=== PATIENT | female | born 1980 | race Caucasian/White ===

== ENCOUNTER 2019-06-19 16:44 | Emergency (ER) | payer BC, SELFPAY ==
[2019-06-19 16:48] VITALS: BP 142/80; PULSE 90; RESP 16; TEMP 36.8; O2SAT 97
--- NOTE | 2019-06-19 16:54 | W.ED.GENAD ---
Discharge Plan Disposition Patient Disposition: HOME Condition: Fair Discharge Details Chief Complaint: Allergic Clinical Impression: Allergic reaction Primary Care Provider: Talita Smith ED Provider: Marva Hampton Home Meds and New Rx's Prescriptions: New prednisone 20 mg tablet 40 mg PO DAILY Qty: 8 RF: 0 Discharge Instructions Instructions: General Allergic Reaction (ED) Additional Instructions: Encourage hydration. Tylenol and/or Motrin as needed for discomfort. You may use topical hydrocortisone for itching. Please take prednisone as prescribed. Please follow up with primary care within the week if symptoms not improved. If you develop fever/chills, worsening of your rash, intraoral lesions, wheezing, difficulty breathing, vomiting or other new/worsening symptoms please seek care urgently once again. Referrals: Talita Smith [Primary Care Provider] - Discharge Data Discharge Date/Time-TO BE ENTERED AT DEPARTURE: 06/19/19 18:14 Medical Decision Making Patient is a 38-year-old otherwise healthy female, presenting today with chief complaint of rash. She reports the rash began insidiously yesterday. States it is itchy. Initially began in the posterior aspect of her neck and since spread to her hair, forehead, eyes. Is also endorsing rash on her chest, abdomen and pelvis. Notes that the medial aspect of the eyes are swollen. Denies any visual change, no discharge. No intraoral lesions. No stridor, wheezing or difficulty breathing. Denies any GI upset. No new known contacts to suggest unusual contact dermatitis. No recent travel. UPT negative On exam, the patient is resting comfortably. No respiratory distress. Is not tachycardic or hypoxic, afebrile. Lungs are clear, no intraoral lesions. Rash consistent with contact dermatitis or other source of allergic urticaria. Patient be given dose of prednisone here. She has been using Benadryl, Zyrtec without symptomatic management and feels that the rash is spreading and worsening. Patient has been on prednisone for similar reaction personally 5 years ago and tolerated this well. I encouraged hydration. Encourage close follow-up with primary care, and advised to may discuss allergy testing if indicated. She was given strict return precautions. Will use topical hydrocortisone cream to help with symptomatic management. All of her questions and concerns were addressed and she is in agreement this plan. HPI General Mode of arrival: ambulatory. Date/Time Provider Initiated Documentation: 06/19/19 16:51. Limitations to Documentation: no limitations. Information obtained by: patient and RN notes reviewed. History of Present Illness 38 year old F presents to the emergency department with the chief complaint of rash, described as moderate, with intensity rated at 6. Quality is described as aching, and is localized to the face, neck, chest, abdomen and pelvis. Patient reports no radiation. Patient started experiencing this day(s) (1) and it has been constant (worsening/spreading). No relieving factors improve symptom(s), No exacerbating factors reported . Patient notes rash; denies chest pain, cough, diaphoresis, fever/chills, headaches, loss of appetite, nausea/vomiting, shortness of breath and weakness. Patient did receive the following treatments prior to arrival, other (benadryl) Related Data Home Medications Medication Instructions Recorded Confirmed prednisone 40 mg PO DAILY #8 tab 06/19/19 Previous Rx's Medication Instructions Recorded prednisone 40 mg PO DAILY #8 tab 06/19/19 Allergies Allergy/AdvReac Type Severity Reaction Status Date / Time Penicillins Allergy Intermediate Hives Unverified 06/19/19 16:53 erythromycin base Allergy sensitivit Unverified 06/19/19 16:53 y General Stated Complaint: Allergic SASHA: 3 Review of Systems Constitutional Reports as per HPI, Denies chills, Denies fever(s), Denies headache(s) and Denies poor appetite Eyes Reports as per HPI, Denies eye discharge and Denies irritation ENT Reports as per HPI, Denies headache(s), Denies sore throat, Denies throat swelling and Denies tongue swelling Cardiovascular Reports as per HPI, Denies chest pain and Denies dyspnea Respiratory Reports as per HPI, Denies cough, Denies dyspnea, Denies stridor and Denies wheezing Gastrointestinal Reports as per HPI, Denies abdominal pain, Denies change in bowel habits, Denies nausea and Denies vomiting Integumentary/Breasts Reports as per HPI, Reports rash and Reports skin pain (itching) Neurologic Reports as per HPI and Denies headache(s) Allergic/Immunologic Denies throat swelling, Denies tongue swelling and Denies wheezing PFS Social History Smoking/Tobacco Use Status: Never Alcohol Intake: current Alcohol Intake frequency: a few times a month Drug use: Never Substance use type: does not use Do you feel safe at home: Yes Do you feel safe in your relationship?: Yes Exam Const General: cooperative, healthy appearing, comfortable, no acute distress, well developed and well groomed Nutritional Appearance: average body habitus and well nourished Orientation: alert and awake [facility] Head: normal to inspection, normocephalic and atraumatic Ears: hearing grossly normal bilaterally, external ears normal and TM's normal bilaterally General nose exam: external nose normal and nares normal Face and sinus: abnormal facial exam (erythematous rash to forehead), sinuses nontender and face symmetric Mouth: oral mucosae normal, lip normal, tongue normal, oropharynx normal and moist mucous membranes Teeth and gingiva: dentition normal and gingiva normal Throat: posterior oropharynx normal, tonsils normal and uvula midline Eyes General: appearance normal, both eyes and all related structures Neck Neck: not normal to visual inspection (urticarial rash to posterior neck into hair), full ROM, no lymphadenopathy and no meningeal signs Resp Effort & Inspection: normal respiratory effort, able to speak in complete sentences and no respiratory distress Auscultation: clear to auscultation bilaterally, no rales, no rhonchi and no wheezes Cardio Rate: regular rate Rhythm: regular rhythm Heart Sounds: S1 normal and S2 normal GI Inspection: abnormal to inspection (rash as described below) Skin General skin exam: erythema (erythematous blotchy, raised rash consistent with hives to face, neck, ab) Neuro General: alert and awake Cognition: normal cognition Speech: speech normal Gait: normal gait Extrem General: normal to inspection (no rash) Psych Appearance: grossly normal and well kempt Mental Status: mental status grossly normal Speech and Movement: speech and movement normal Course Vital Signs Temperature 36.8 C 06/19/19 16:48 Pulse 90 06/19/19 16:48 Respiratory Rate 16 06/19/19 16:48 Blood Pressure 142/80 H 06/19/19 16:48 Pulse Oximetry 97 06/19/19 16:48 Temperature 36.8 C 06/19/19 16:48 Temperature Source Skin 06/19/19 16:48 Pulse 90 06/19/19 16:48 Respiratory Rate 16 06/19/19 16:48 Respiratory Effort Non-Labored 06/19/19 16:51 Blood Pressure 142/80 H 06/19/19 16:48 Pulse Oximetry 97 06/19/19 16:48 Oxygen Delivery Method Room Air 06/19/19 16:48 Oxygen Flow Rate 0 06/19/19 16:48 Pain Level 6 06/19/19 16:48
[2019-06-19] MEDS: predniSONE 20 MG TAB 40 MG PO (17:11)
== END 2019-06-19 18:14 | disposition home or self-care (01) ==
LOC: ER 17:43
PROVIDERS: Emergency Provider Physician Assistant; PCP Nurse Practitioner Family
DX: L50.0 Allergic urticaria (principal)
CPT/HCPCS: 81025; 99283; J7512

== ENCOUNTER 2023-02-02 18:46 | Emergency (ER) | payer SELFPAY ==
[2023-02-02] VITALS (10 sets, daily range): BP systolic 108–143; BP diastolic 62–96; PULSE 68–87; RESP 15–24; TEMP 36.9; O2SAT 95–98
--- NOTE | 2023-02-02 18:45 | RT.EKG_ITS ---
APPROVED REPORT Exam: Resting ECG Reason for Exam: Chest pain Patient Location: E HR:72 bpm ECG Measurements Heart Rate 72 AXIS GA 137 P 68 QRSd 80 QRS 78 QT 398 T 76 QTc 435 Conclusion Sinus rhythm...normal P axis, V-rate 60- 99 sinus rhythm, normal axis, normal intervals, consider lateral st segment depressions
--- NOTE | 2023-02-02 19:00 | DI.RAD_ITS ---
Exam(s) XR CHEST 2V PA LATERAL EXAM: XR CHEST 2V PA LATERAL CLINICAL HISTORY: Chest Pain TECHNIQUE: 2D digital imaging was performed of the chest. Two images were obtained. PA and lateral views were obtained. COMPARISON: No exams were available for comparison FINDINGS: MEDIASTINUM: Normal. HEART: Normal. PULMONARY VASCULATURE: Normal. LUNGS: Clear. PLEURAL SPACE: No pleural effusion or pneumothorax. BONE:Within normal limits for the patient's age. OTHER FINDINGS:Normal. IMPRESSION: No acute pulmonary findings. DATA REPOSITORY: RADIATION DOSE DELIVERED:
--- NOTE | 2023-02-02 19:03 | ED.GENADUL_ITS ---
Discharge Plan Disposition Patient Disposition: Home Condition: Stable Discharge Details Clinical Impression: Feeling of chest tightness Primary Care Provider: Talita Smith ED Provider: Shirin Alves Home Meds and New Rx's Prescriptions: No Action omeprazole 20 mg Tablet,Delayed Release (Dr/Ec) 20 mg PO DAILY prednisone 20 mg tablet 40 mg PO DAILY Qty: 8 0RF Discharge Instructions Instructions: Chest Pain (ED) Additional Instructions: Cardiac work-up today is within normal limits. No evidence of heart problems, no evidence of pneumonia. Follow up with primary care provider in 3-5 days. Return to ED sooner if any worsening or concerns. Increase oral fluids. Follow-up with research chemical engineer if you continue to have this throat discomfort. Referrals: Joseph Harrell MD [ [facility] STAFF PHYSICIAN] - 1 week Talita Smith [Primary Care Provider] - 5 days Medical Decision Making 42-year-old female presents to the ER with a chief complaint of throat discomfort, reports that she feels like she cannot clear her throat, chest tightness. She reports unable to clear her for throat for the last 3 weeks and chest tightness began today. She was seen in [facility] and was sent here for further evaluation. She denies any nausea vomiting diarrhea denies any fever chills or productive cough. She is a non-smoker. EKG was reviewed by Dr. Minaya ER attending, please see your official report, no old EKG available for review. Work-up ordered including CBC CMP serial troponins, chest x-ray. Differential diagnosis includes but limited to coronary artery disease, pneumonia, viral illness or URI. PE although this is unlikely due to no tachycardia no shortness of breath. Work-up is largely unremarkable, no leukocytosis, CMP within normal limits, serial troponins negative x2 chest x-ray also within normal limits, patient was given lorazepam, GI cocktail and albuterol inhaler which seemed to improve her symptoms. I did instruct her to follow-up with her PCP and ear nose and throat if continued trouble clearing her throat. This text was generated using Mimoonaation system, please disregard any oddities of phrase or misspellings. Imaging Data Radiologic Study: Imaging: X-Ray Radiologist's impression: Imaging protocol: Radiologic exam of the chest. Views: 2 views. COMPARISON: No relevant prior studies available. FINDINGS: Lungs: Unremarkable. No consolidation. Pleural spaces: Unremarkable. No pleural effusion. No pneumothorax. Heart/Mediastinum: Unremarkable. No cardiomegaly. Bones/joints: Unremarkable. IMPRESSION: No acute findings. Thank you for allowing us to participate in the care of your patient. Dictated and Authenticated by: Enmanuel Lezama MD Lab Data Lab results reviewed: Yes I reviewed the patient's lab results. Labs: Laboratory Tests Range/Units 02/02/23 02/02/23 02/02/23 18:47 18:47 19:35 WBC Cancelled 10.64 RBC Cancelled 4.51 Hgb Cancelled 14.1 Hct Cancelled 39.9 MCV Cancelled 89 MCH Cancelled 31.3 MCHC Cancelled 35.3 RDW Cancelled 11.5 L Plt Count Cancelled 288 MPV Cancelled 9.5 Immature Gran % Cancelled 0.3 Neutrophils % Cancelled 59.0 Band Neutrophils % Cancelled Lymphocytes % Cancelled 32.3 Atypical Lymphs % Cancelled Monocytes % Cancelled 6.8 Eosinophils % Cancelled 1.4 Basophils % Cancelled 0.2 Metamyelocytes % Cancelled Myelocytes % Cancelled Promyelocytes % Cancelled Other Cells % Cancelled Nucleated RBC % Cancelled 0.0 Absolute Neutrophils Cancelled 6.28 Absolute Lymphocytes Cancelled 3.44 H Absolute Monocytes Cancelled 0.72 Absolute Eosinophils Cancelled 0.15 Absolute Basophils Cancelled 0.02 RBC Morphology Cancelled Polychromasia Cancelled Hypochromasia Cancelled Poikilocytosis Cancelled Basophilic Stippling Cancelled Anisocytosis Cancelled Microcytosis Cancelled Macrocytosis Cancelled Spherocytes Cancelled Tear Drop Cells Cancelled Ovalocytes Cancelled Stomatocytes Cancelled [place] Bodies Cancelled Kaci Cells/Echinocytes Cancelled Acanthocytes (Spur) Cancelled Schistocytes Cancelled Sodium Cancelled Potassium Cancelled Chloride Cancelled Carbon Dioxide Cancelled Anion Gap Cancelled BUN Cancelled Creatinine Cancelled Est GFR (CKD-EPI 2020) Cancelled Glucose Cancelled Calcium Cancelled Magnesium Cancelled Total Bilirubin Cancelled AST Cancelled ALT Cancelled Alkaline Phosphatase Cancelled Troponin I Cancelled Total Protein Cancelled Albumin Cancelled Range/Units 02/02/23 02/02/23 19:35 21:50 WBC RBC Hgb Hct MCV MCH MCHC RDW Plt Count MPV Immature Gran % Neutrophils % Band Neutrophils % Lymphocytes % Atypical Lymphs % Monocytes % Eosinophils % Basophils % Metamyelocytes % Myelocytes % Promyelocytes % Other Cells % Nucleated RBC % Absolute Neutrophils Absolute Lymphocytes Absolute Monocytes Absolute Eosinophils Absolute Basophils RBC Morphology Polychromasia Hypochromasia Poikilocytosis Basophilic Stippling Anisocytosis Microcytosis Macrocytosis Spherocytes Tear Drop Cells Ovalocytes Stomatocytes [place] Bodies [place] Cells/Echinocytes Acanthocytes (Spur) Schistocytes Sodium 137 Potassium 3.5 Chloride 104 Carbon Dioxide 25.8 Anion Gap 7.2 BUN 9 Creatinine 0.6 Est GFR (CKD-EPI 2020) 114.86 Glucose 99 Calcium 8.9 Magnesium 1.9 Total Bilirubin 0.3 AST 17 ALT 36 Alkaline Phosphatase 72 Troponin I < 50 < 50 Total Protein 7.4 Albumin 4.0 HPI General Mode of arrival: ambulatory . Date/Time Provider Initiated Documentation: 02/02/23 18:47 . Limitations to Documentation: no limitations . Information obtained by: patient, RN notes reviewed and old records reviewed . HPI Narrative: 42-year-old female presents to the ER with a chief complaint of throat discomfort, reports that she feels like she cannot clear her throat, chest tightness. She reports unable to clear her for throat for the last 3 weeks and chest tightness began today. She was seen in [facility] care and was sent here for further evaluation. She denies any nausea vomiting diarrhea denies any fever chills or productive cough. She is a non-smoker. She did travel to [place] approximately 3 weeks ago. Related Data Home Medications Medication Instructions Recorded Confirmed prednisone 20 mg tablet 40 mg PO DAILY #8 tabs 06/19/19 omeprazole 20 mg tablet,delayed 20 mg PO DAILY 02/02/23 02/02/23 release Previous Rx's Medication Instructions Recorded prednisone 20 mg tablet 40 mg PO DAILY #8 tabs 06/19/19 Allergies Allergy/AdvReac Type Severity Reaction Status Date / Time Penicillins Allergy Intermediate Hives Unverified 02/02/23 18:59 erythromycin base Allergy sensitivit Unverified 02/02/23 18:59 y General Stated Complaint: Chest Pain SASHA: 3 Review of Systems All systems reviewed & are unremarkable except as noted in HPI and below Cardiovascular Cardiovascular: Reports chest pain, Denies leg edema and Reports dyspnea Respiratory Respiratory: Reports cough and Reports dyspnea Gastrointestinal Gastrointestinal: Denies abdominal pain, Denies diarrhea, Denies nausea and Denies vomiting PFSH All Active Problems (Updated 02/02/23 @ 21:51 by Shirin Alves NP) Feeling of chest tightness (Acute) Social History Smoking/Tobacco Use Status: Never Smoking risk assessment performed?: Yes Alcohol Intake: current Alcohol Intake frequency: a few times a month Drug use: Never Substance use type: does not use Do you feel safe at home: Yes Do you feel safe in your relationship?: Yes Exam Narrative Exam Narrative: Constitutional: Alert and oriented x3. Appears stated age. Normal body habitus. Head: Normocephalic, no trauma. Eyes: Pupils PERRL, Red reflex noted, EOM's intact. Eyelids symmetrical without lesions, discharge, or swelling. ENT: Bilateral TM's WNL, External ear normal to inspection, no mastoid TTP, swelling, or erythema, Nasal turbinates WNL, no nasal discharge. Normal dentition, Posterior pharynx WNL, no exudate. Chest: RRR, Normal S1, S2, distal pulses intact. Resp: Lungs clear to auscultation bilaterally, no wheezes, rales, or rhonchi. Abdomen: Soft, non-distended, Normoactive bowel sounds all 4 quads. Musculoskeletal: Normal gait, 5/5 strength to all four extremities. Skin: No suspicious rashes or lesions. Capillary refill less than 2 sec. Neurologic: Cranial nerves II-XII intact. Alert and oriented x 3. Motor: No deficits noted. Sensory: Intact bilaterally all 4 extremities. Reflexes: DTR's intact bilaterally.. Hematologic/Lymphatic: No ecchymosis, no lymphadenopathy. Course Vital Signs Vital signs: Vital Signs Pulse 78 02/02/23 18:52 Respiratory Rate 18 02/02/23 18:52 Blood Pressure 143/83 H 02/02/23 18:52 Pulse Oximetry 98 02/02/23 18:52 Pulse 78 02/02/23 18:52 Respiratory Rate 18 02/02/23 18:55 Respiratory Effort Normal 02/02/23 18:55 Respiratory Depth Normal 02/02/23 18:55 Respiratory Pattern Normal 02/02/23 18:55 Blood Pressure 143/83 H 02/02/23 18:52 Pulse Oximetry 98 02/02/23 18:52 Oxygen Delivery Method Room Air 02/02/23 18:52 Oxygen Flow Rate 0 02/02/23 18:52
--- OUTSIDE RECORDS SUMMARY | 2023-02-02 19:17 | XMS_ITS ---
Author Name Nina Patel Address [address], [place] [id number] Organization [facility] Address [address], [place] [id number] Care Team Providers Care Environmental Safety Specialist Name Role Phone Nina Patel Unavailable [phone] PROBLEMS Type Condition ICD9-CM Code LUR58-TZ Code Onset Dates Condition Status SNOMED Code Problem Cystocele, midline N81.11 Active 240357424 Problem Sleep related leg cramps G47.62 Active [id number] ALLERGIES Substance Reaction Event Type Date Status Erythromycin nausea/vomiting Drug Allergy May, Act anthony Penicillin V Potassium rash Drug Allergy May, Active ENCOUNTERS Encounter Location Date Diagnosis [address] [id number] Jun, [address] [id number] May, Breast cancer screening by mammogram Z12.31 ; Encntr for accounting officer exam (general) (routine) w/o abn findings Z01.419 and IUD surveillance Z30.[address] [id number] Jun, [address] [id number] May, Encntr for accounting officer exam (general) (routine) w/o abn findings Z01.419 ; Weight gain R63.5 and Screening mammogram, encounter for Z12.31 [facility] [address], [place] [id number] 27 Dec, 2020 Encounter for screening laboratory testing for COVID-19 virus Z20.[address] [id number] 10 May, 2020 Encntr for accounting officer exam (general) (routine) w/o abn findings Z01.419 and IUD surveillance Z30.[address] [id number] 30 Dec, [address] [id number] 16 Jun, 2019 IUD surveillance Z30.[address] [id number] May, Encounter for insertion of intrauterine contraceptive device Z30.430 ; General counseling and advice for contraceptive management Z30.09 ; Encounter for test with result negative Z32.02 and Urinary frequency R35.[address] [id number] Apr, [address] [id number] February, [address] [id number] 13 Dec, 2018 Encounter for gynecological examination (general) (routine) without abnormal findings Z01.419 ; Encounter for other screening for malignant neoplasm of breast Z12.39 ; Encounter for screening for malignant neoplasm of cervix Z12.4 ; Headache in back of head R51 ; Encounter for issue of repeat prescription Z76.0 ; Encounter for surveillance of contraceptive pills Z30.41 ; Pelvic floor relaxation N81.89 ; Encounter for general adult medical examination without abnormal findings Z00.00 ; Encounter for screening for other suspected endocrine disorder Z13.29 and Sleep related leg cramps G47.[address] [id number] Nov, [address] [id number] Oct, Encounter for gynecological examination without abnormal finding Z01.419 ; Encounter for other screening for malignant neoplasm of breast Z12.39 ; Encounter for issue of repeat prescription Z76.0 ; Other specified noninflammatory disorders of vagina N89.8 and Cystocele, midline N81.[address] [id number] 14 Sep, [address] [id number] Jul, [address] [id number] Jul, [address] [id number] Jun, Encounter for gynecological examination (general) (routine) without abnormal findings Z01.419 ; Encounter for other screening for malignant neoplasm of breast Z12.39 ; Encounter for issue of repeat prescription Z76.0 and Cystocele, midline N81.[address] [id number] May, Guillermo Winter MD [address] [place] [id number] Jun, Encounter for gynecological examination V72.31 ; Screening breast examination V76.10 and PRESCRIP-ORAL CONTRACEPT V25.01 Guillermo Winter MD [address] [place] [id number] Mar, Oral contraceptive prescribed V25.01 Guillermo Winter MD [address] [place] [id number] Jun, Guillermo Winter MD [address] [place] [id number] May, Encounter for routine gynecological examination V72.31 ; Karen vaginitis 112.1 ; Frequency of urination 788.41 ; Special Screening for cervical cancer Pap Smear V76.2 and PRESCRIP-ORAL CONTRACEPT V25.01 Guillermo Winter MD [address] [place] [id number] Apr, IMMUNIZATIONS No Known Immunizations SOCIAL HISTORY Qualifiers Date Never Smoker REASON FOR REFERRAL FUNCTIONAL STATUS PLAN OF CARE Activity Details VITAL SIGNS Height 62 in 2022-06-16 Height 62 in 2021-06-04 Height 62 in 2020-05-27 Height 62 in 2019-07-03 Height 62 in 2019-06-06 Height 62 in 2018-12-28 Height 62 in 2017-11-01 Height 62 in 2016-07-07 Height 62 in 2015-06-28 Height 62 in 2014-05-30 Weight 201.8 lbs 2022-06-16 Weight 194.0 lbs 2021-06-04 Weight 185.4 lbs 2020-05-27 Weight 161.0 lbs 2019-07-03 Weight 160.6 lbs 2019-06-06 Weight 167 lbs 2018-12-28 Weight 165.8 lbs 2017-11-01 Weight 167 lb 2 oz lbs 2016-07-07 Weight 169 lbs 2015-06-28 Weight 153 lbs 2014-05-30 Heart Rate 62 /min 2015-06-28 BMI 36.91 kg/m2 2022-06-16 BMI 35.48 kg/m2 2021-06-04 BMI 33.91 kg/m2 2020-05-27 BMI 29.44 kg/m2 2019-07-03 BMI 29.37 kg/m2 2019-06-06 BMI 30.54 kg/m2 2018-12-28 BMI 30.32 kg/m2 2017-11-01 BMI 30.56 kg/m2 2016-07-07 BMI 30.91 kg/m2 2015-06-28 BMI 27.98 kg/m2 2014-05-30 Blood pressure systolic 120 mm Hg Blood pressure diastolic 82 mm Hg 2022-05 MEDICATIONS Medication Instructions Dosage Frequency Start Date End Date Duration Status Mirena 20 MCG/24HR as directed Active Macrobid 100 MG Orally every 12 hrs 1 capsule with food 12h 7 day(s) Not-Takin g PROCEDURES Procedure Date Ordered Result Body Site HERMILA -PHONE E/M PHYS/QHP 5-10 MIN January 11, 2021 IH URINALYSIS NONAUTO W/O SCOPE Jun 06, 2019 URINE TEST May 30, 2014 URINE TEST Jun 06, 2019 IUD INSERTION Jun 06, 2019 LNG-RELEASING IUC SYS 52MG 5 YR DUR Jun 06, 2019 RHIANNON/WET [place] VAGINAL May 30, 2014 RESULTS Name Result Date Reference Range MG MAMMOGRAPHY BILATERAL SCREENING 2022-07-15 MG MAMMOGRAPHY BILATERAL SCREENING 2021-07-03 COVID 19 (POS) BinaxNow Ag Card 2021-01-13 SARS-CoV-2 positive URINE DIP ([facility]) 2019-06-06 Color dk yellow Clarity cloudy Glucose neg Bilirubin neg Ketones neg Specific [place] 1.020 Blood about 250 PH 5 Protein +30 Uro normal Nitrates positive Leukocytes +++ Test (Rapid) Urine 2019-06-06 Result negative Control Passed CULTURE URINE 2019-06-06 CBC, WITH AUTO DIFF 2018-12-30 WBC 8.3 4.8-10.8 RBC 4.59 4.20-5.40 HGB 14.0 12.0-16.0 HCT 39.7 37.0-47.0 MCV 86.5 81.0-99.0 MCH 30.5 27.0-31.0 MCHC 35.3 32.0-37.0 RDW-CV 11.6 11.5-14.5 PLT 296 130-400 MPV 9.8 7.4-10.4 NE% 63.8 42.2-75.2 LY% 28.8 20.5-51.1 MO% 5.4 1.7-9.3 EO% 1.3 0.9-2.9 BA% 0.2 0.0-0.8 NE# 5.3 1.4-6.5 LY# 2.4 1.2-3.4 MO# 0.5 0.1-0.6 EO# 0.1 0.0-0.2 BA# 0.0 0.0-0.2 Pap Lb, HPV-hr 2018-12-28 . Note: Clinical history: DIAGNOSIS: NEG ROMAN Specimen adequacy: STATISF Additional comment: HRHPV NOT DETECTED Recommendation: Repeat pap in 5y Performed by: [facility] Electronically signed by: Test ordered: Maturation index: Amended report: Addendum: QC reviewed by: Cytology history: Special procedure: QA comment: Diagnosis provided by: Source: Pathologist provided ICD9: * * * * Clinician provided ICD9: Interpretation HPV, high-risk LBP CPT Code Automation COMPREHENSIVE METABOLIC PROFILE 2018-12-30 SODIUM 140 136-145 POTASSIUM 3.9 3.5-5.1 CHLORIDE 106 98-111 CO2 24 22-32 CALCIUM 9.0 8.9-10.3 BUN 7 8-26 CREATININE 0.45 0.44-1.00 TOTAL BILIRUBIN 0.6 0.3-1.2 TOTAL PROTEIN 7.0 6.5-8.1 ALBUMIN 3.7 3.5-5.0 ALKALINE PHOS 55 32-92 AST 18 15-41 ALT 11 14-54 A/GAP 10.0 3.0-12.0 B/CR 15.6 8.0-20.0 OSMOLARITY 277 275-295 GLOBULIN 3.3 2.3-3.5 A/G 1.1 1.0-2.5 TSH w/REFLEX TO FT4 2018-12-30 TSH 1.08 0.45-5.33 Wet Prep Trichomonas Exam Neg Yeast Exam ++++ Clue Cell Exam Neg URINALYSIS COMPLETE 2014-05-30 COLOR Yellow YELLOW CLARITY Clear CLEAR SPECIFIC GRAVITY 1.010 1.000-1.030 pH 7.0 5.0-8.0 PROTEIN Negative NEGATIVE GLUCOSE Negative NEGATIVE KETONES Negative NEGATIVE UROBILINOGEN 0.2 E.U./dL 0.2 E.U./DL BILIRUBIN Negative NEGATIVE BLOOD Negative NEGATIVE LEUKOCYTES Small NEGATIVE NITRITES Negative NEGATIVE REDUCING SUBSTANCES RBCs 0-3 SQ EPITHELIAL CELLS 0-3 0-3 RTE CELLS 0-3 TRANSITIONAL EPIs 0-3 BACTERIA NONE SEEN NONE SEEN CRYSTALS NONE SEEN HYALINE CASTS NONE SEEN GRANULAR CASTS NONE SEEN RBC CASTS NONE SEEN WBC CASTS NONE SEEN WAXY CASTS NONE SEEN YEAST NONE SEEN TRICHOMONADS NONE SEEN CULTURE URINE 2014-05-30 Pap Lb, rfx HPV ASCU 2014-05-30 . Note: . Clinical history: LMP 1 month/routine exam/OCP/Cervix normal/previous pap 2010-WNL/ASCUS 2003 DIAGNOSIS: negative for intraep ithelial lesion or malignancy. fungal organisms morphologically consistent with karen species. negative HPV Specimen adequacy: satisfactory for evaluation/endocervical/trans formation zone component present Additional comment: Recommendation: Performed by: [facility] Electronically signed by: MEIR Werner (ASCP) Test ordered: pap, liquid based Maturation index: Amended report: Addendum: QC reviewed by: Cytology history: Special procedure: QA comment: Diagnosis provided by: Source: Pathologist provided ICD9: * * * * Clinician provided ICD9: Interpretation LBP CPT Code Automation Wet Prep 2014-05-30 Trichomonas Exam NEG Yeast Exam POSITIVE Clue Cell Exam NEG HCG SCREEN, URINE QC INTERNAL TEST VALIDATION URINE HCG SCREEN SPECIFIC GRAVITY UHCG INTERPRETIVE TEXT REASON FOR VISIT ASSOCIATE SOFTWARE APPLICATION ENGINEER well woman, Neg MG, ASSOCIATE SOFTWARE APPLICATION ENGINEER well woman, ASSOCIATE SOFTWARE APPLICATION ENGINEER well woman, Neg MG, ASSOCIATE SOFTWARE APPLICATION ENGINEER annual exam- is having a hard time losing weight. She has gained about 30# since IUD was placed, covid, ASSOCIATE SOFTWARE APPLICATION ENGINEER Well Woman-no issues to discuss, Well Woman, *ASSOCIATE SOFTWARE APPLICATION ENGINEER Well Woman, COVID 19 reschedule of appt. , *ASSOCIATE SOFTWARE APPLICATION ENGINEER Well Woman, ASSOCIATE SOFTWARE APPLICATION ENGINEER 4 week follow up Mirena placed 06/06, ASSOCIATE SOFTWARE APPLICATION ENGINEER-IUD Insertion, ASSOCIATE SOFTWARE APPLICATION ENGINEER-IUD Insertion, ? UTI, IUD f/u & ? yeast infection, Trinessa Rx refill request, ASSOCIATE SOFTWARE APPLICATION ENGINEER EST WELL WOMAN EXAM, ASSOCIATE SOFTWARE APPLICATION ENGINEER EST WELL WOMAN EXAM, Annual women's wellness exam due., ASSOCIATE SOFTWARE APPLICATION ENGINEER Well woman, ASSOCIATE SOFTWARE APPLICATION ENGINEER Well woman, rx, ASSOCIATE SOFTWARE APPLICATION ENGINEER well woman, rx, Annual is due, ASSOCIATE SOFTWARE APPLICATION ENGINEER well woman, refill request, ASSOCIATE SOFTWARE APPLICATION ENGINEER EST WELLNESS, ASSOCIATE SOFTWARE APPLICATION ENGINEER EST WELLNESS, Refill Request, ASSOCIATE SOFTWARE APPLICATION ENGINEER EST WELLNESS, refill Insurance Providers Health Insurance Type Health Plan Insurance Address Health Plan Insurance Phone Health Plan Insurance Name Health Plan Coverage Dates Member ID Patient Relationship to Subscriber Patient Address Patient Phone Patient Name Patient Date of Subscriber ID Subscriber Name Subscriber Date of Group No BCBS OUT OF [place] [address] [facility] CLAIMS [facility] [id number] BCBS OUT OF ARE[place] self [facility] 1980 [id number] [place] [address] [facility] [address] [place] self [facility] [id number] [place] [address] [facility] [address] [place] [id number] [place] [address] [facility] [address] [place] self [facility] 1980 [id number]
[2023-02-02 19:43] LABS: Abs Immature Grans 0.03 10^3/uL (0.0-0.06); Absolute Basophil Count 0.02 10^3/uL (0.0-0.2); Absolute Eosinophil Count 0.15 10^3/uL (0.0-0.7); Absolute Lymphocyte Count 3.44 10^3/uL (1.2-3.4); Absolute Monocyte Count 0.72 10^3/uL (0.1-0.8); Absolute Neutrophil Count 6.28 10^3/uL (1.2-6.7); Basophils % 0.2; Eosinophils % 1.4; HCT 39.9 % (36.0-46.0); HGB 14.1 g/dL (11.2-15.7); Immature Grans % 0.3; Lymphocytes % 32.3; MCH 31.3 pg (27.0-33.0); MCHC 35.3 % (32.0-36.0); MCV 89 fL (80-95); MPV 9.5 fL (8.0-11.0); Monocytes % 6.8; Platelet Count 288 10^3/uL (130-400); RBC 4.51 10^6/uL (3.93-5.22); RDW 11.5 % (11.7-14.6); WBC 10.64 10^3/uL (4.4-10.8)
[2023-02-02 20:02] LABS: ALT 36 U/L (14-59); AST 17 U/L (15-37); Alkaline Phosphatase 72 U/L (46-116); Anion Gap 7.2 mmol/L (3-11); BUN 9 mg/dL (7-18); Bilirubin, Total 0.3 mg/dL (0.2-1.0); CO2 25.8 mmol/L (21.0-32.0); CREATININE 0.6 mg/dL (0.55-1.02); Calcium 8.9 mg/dL (8.5-10.1); Chloride 104 mmol/L (98-107); Estimated GFR 114.86 (mL/min/1.73m2); Glucose 99 mg/dL (74-106); Magnesium 1.9 mg/dL (1.8-2.4); Potassium 3.5 mmol/L (3.5-5.1); Sodium 137 mmol/L (136-145); Total Protein 7.4 g/dL (6.4-8.2); Troponin I < 50 ng/L (<or=60)
--- NOTE | 2023-02-02 20:08 | DI.VRAD_ITS ---
PROCEDURE INFORMATION: Exam: XR Chest Exam date and time: 02/02/2023 7:41 PM Age: 42 years old Clinical indication: Pain; Chest pressure; Additional info: Chest pain TECHNIQUE: Imaging protocol: Radiologic exam of the chest. Views: 2 views. COMPARISON: No relevant prior studies available. FINDINGS: Lungs: Unremarkable. No consolidation. Pleural spaces: Unremarkable. No pleural effusion. No pneumothorax. Heart/Mediastinum: Unremarkable. No cardiomegaly. Bones/joints: Unremarkable. IMPRESSION: No acute findings. Dictated and Authenticated by: Enmanuel Lezama MD. Ordering:CHARO Carpio MD
[2023-02-02] MEDS: LORazepam 2 MG/ML VIAL 0.5 MG IVP (20:41)
[2023-02-02] MEDS: Albuterol HFA 8 GM 60 PUFF INH IH (21:09)
--- NOTE | 2023-02-02 21:58 | NUR.NOTE ---
Nursing Note: Report given to Flory GARCIA
[2023-02-02 22:13] LABS: Troponin I < 50 ng/L (<or=60)
== END 2023-02-02 22:47 | disposition home or self-care (01) ==
PROVIDERS: Emergency Provider Registered Nurse Emergency; PCP Nurse Practitioner Family
DX: R07.89 Other chest pain (principal)
CPT/HCPCS: 80053; 93005; 94640; 96374; 99284; 71046; 83735; 84484; 85025; 93010; J2060

== ENCOUNTER 2023-11-01 15:20 | Outpatient (REF) | payer BC, SELFPAY ==
[2023-11-01 18:34] LABS: Abs Immature Grans 0.03 10^3/uL (0.0-0.06); Absolute Basophil Count 0.03 10^3/uL (0.0-0.2); Absolute Eosinophil Count 0.14 10^3/uL (0.0-0.7); Absolute Lymphocyte Count 3.06 10^3/uL (1.2-3.4); Absolute Monocyte Count 0.69 10^3/uL (0.1-0.8); Absolute Neutrophil Count 6.22 10^3/uL (1.2-6.7); Basophils % 0.3; Eosinophils % 1.4; HCT 43.2 % (36.0-46.0); HGB 14.7 g/dL (11.2-15.7); Immature Grans % 0.3; Lymphocytes % 30.1; MCH 30.2 pg (27.0-33.0); MCV 89 fL (80-95); MPV 9.6 fL (8.0-11.0); Monocytes % 6.8; Neutrophils % 61.1; Platelet Count 331 10^3/uL (130-400); RBC 4.86 10^6/uL (3.93-5.22); RDW 11.6 % (11.7-14.6); RDW-SD 37.2 fL; WBC 10.17 10^3/uL (4.4-10.8)
[2023-11-01 18:46] LABS: ALT 33 U/L (14-59); AST 27 U/L (15-37); Albumin 4.2 g/dL (3.4-5.0); Alkaline Phosphatase 74 U/L (46-116); Anion Gap 10.1 mmol/L (3-11); BUN 7 mg/dL (7-18); Bilirubin, Total 0.5 mg/dL (0.2-1.0); CO2 23.9 mmol/L (21.0-32.0); CREATININE 0.6 mg/dL (0.55-1.02); Calcium 9.5 mg/dL (8.5-10.1); Chloride 103 mmol/L (98-107); Estimated GFR 114.15 (mL/min/1.73m2); Glucose 91 mg/dL (74-106); Potassium 3.9 mmol/L (3.5-5.1); Sodium 137 mmol/L (136-145)
== END 2023-11-01 15:21 | disposition home or self-care (01) ==
LOC: NCHCN 15:20
PROVIDERS: Visit Provider Nurse Practitioner Family
DX: R10.13 Epigastric pain (principal)
CPT/HCPCS: 80053; 85025

== ENCOUNTER → 2023-12-08 01:11 | Outpatient (CLI) | payer BC, SELFPAY ==
--- NOTE | 2023-12-08 06:45 | DI.NM_ITS ---
Exam(s) NM HEPATOBILIARY CCK GRP EXAM: NM HEPATOBILIARY CCK GRP CLINICAL HISTORY: ruq pain/nausea/early satiety,R10.11,R11.0. TECHNIQUE: Injected dose: 5 mCi Tc-99 mebrofenin Initial dynamic images: 60 minutes Post-Gallbladder fillin.02 mcg/kg CCK intravenously over a 15min infusion. Addition images: 20 minute dynamic during CCK administration. COMPARISON: Recent ultrasound reviewed FINDINGS: There is normal uptake and excretion of radiopharmaceutical by the liver and activity seen within the gallbladder lumen starting at 8 minutes post injection. In response to CCK infusion there is a low normal gallbladder ejection fraction of 36 percent demonst rated. Below 35 percent is abnormal. IMPRESSION: 1. No evidence of obstruction of the cystic duct 2. Low normal gallbladder ejection fraction of 36 percent demonstrated.
[2023-12-08] MEDS: Sincalide 5 MCG VIAL IJ (10:38)
== END ==
PROVIDERS: PCP Nurse Practitioner Family; Visit Provider Surgery
DX: R11.0 Nausea; R10.11 Right upper quadrant pain
CPT/HCPCS: 78227; J2805

== ENCOUNTER 2024-11-23 17:21 | Outpatient (REF) | payer BC, SELFPAY ==
[2024-11-23 19:05] LABS: Abs Immature Grans 0.02 10^3/uL (0.0-0.06); Absolute Basophil Count 0.05 10^3/uL (0.0-0.2); Absolute Eosinophil Count 0.29 10^3/uL (0.0-0.7); Absolute Lymphocyte Count 2.49 10^3/uL (1.2-3.4); Absolute Monocyte Count 0.68 10^3/uL (0.1-0.8); Basophils % 0.5 %; Eosinophils % 3.1 %; HCT 41.2 % (36.0-46.0); HGB 14.2 g/dL (11.2-15.7); Immature Grans % 0.2 %; Lymphocytes % 26.4 %; MCH 30.5 pg (27.0-33.0); MCHC 34.5 % (32.0-36.0); MCV 89 fL (80-95); MPV 9.6 fL (8.0-11.0); Monocytes % 7.2 %; Neutrophils % 62.6 %; Platelet Count 325 10^3/uL (130-400); RBC 4.65 10^6/uL (3.93-5.22); RDW 11.6 % (11.7-14.6); RDW-SD 36.9 fL; WBC 9.43 10^3/uL (4.4-10.8)
[2024-11-23 19:14] LABS: ALT 59 U/L (14-59); AST 38 U/L (15-37); Albumin 4.4 g/dL (3.4-5.0); Alkaline Phosphatase 89 U/L (46-116); Anion Gap 7.6 mmol/L (3-11); BUN 6 mg/dL (7-18); Bilirubin, Total 0.45 mg/dL (0.2-1.0); CO2 29.4 mmol/L (21.0-32.0); CREATININE 0.6 mg/dL (0.55-1.02); Calcium 9.3 mg/dL (8.5-10.1); Chloride 104 mmol/L (98-107); Estimated GFR 113.44 (mL/min/1.73m2); Glucose 91 mg/dL (74-106); Potassium 3.8 mmol/L (3.5-5.1); Sodium 141 mmol/L (136-145); Total Protein 7.4 g/dL (6.4-8.2)
== END 2024-11-23 17:22 | disposition home or self-care (01) ==
LOC: NCHCN 17:21
PROVIDERS: Visit Provider Nurse Practitioner Family
DX: K21.9 Gastro-esophageal reflux disease without esophagitis (principal)
CPT/HCPCS: 80053; 85025